=== PATIENT | male | born 1960 | race Caucasian/White ===

== ENCOUNTER 2019-11-21 20:29 | Inpatient (IN) | payer OTHER ==
[~2019-11-21] VITALS: Ht 170.2 cm; Wt 122.3 kg
--- NOTE | 2019-11-21 20:59 | NUR ---
PT BROUGHT IN BY SON DUE TO RIGHT FACIAL DROOP THAT BEGAN AT 1630. +RIGHT FACIAL DROOP. +WEAKNESS ON RIGHT ARM AND LEG. DENIES NUMBNESS AND TINGLING. PT HAS NO SLURRED SPEECH AT THIS TIME HOWEVER SON STATES HE HAD IT EARLIER. PT IS A/O X4. RESP E/U. DENIES PAIN/DISCOMFORT. TELE NEURO ON STANDBY.
--- NOTE | 2019-11-21 21:18 | NUR ---
PT SEEN BY TELE NEURO.
[2019-11-21 21:28] LABS: BASOPHIL % 0.6 % (0-2); PLATELET COUNT 290 x10^3mcL (130-400)
[2019-11-21 21:36] LABS: CALCIUM 8.9 mg/dL (8.5-10.1); CARBON DIOXIDE 27.1 mmol/L (21-32); CHLORIDE SERUM 101 mmol/L (98-107); CREATININE SERUM 1.1 mg/dL (0.7-1.3); GFR1 > 60 mL/min; GLUCOSE SERUM 147 mg/dL (74-106); POTASSIUM SERUM 3.6 mmol/L (3.5-5.1); SODIUM SERUM 136 mmol/L (136-145)
[2019-11-21] MEDS ORDERED: LOSARTAN POTASS25 M1 PO (21:40)
[2019-11-21 21:41] LABS: ALBUMIN 3.5 g/dL (3.4-5.0); ALKALINE PHOSPHATASE 99 U/L (46-116); ALT/SGPT 54 U/L (16-63); AST/SGOT 31 U/L (15-37); BILIRUBIN TOTAL 0.5 mg/dL (0.20-1.00); TOTAL PROTEIN, SERUM 7.5 g/dL (6.4-8.2)
[2019-11-21] MEDS ORDERED: GOOD SENSE OMEP20 MG PO (21:41)
--- NOTE | 2019-11-21 21:57 | NUR ---
ATTEMPTED TO URINATE HOWEVER COULD NOT.
--- NOTE | 2019-11-21 22:13 | NUR ---
PT RESTING IN BED WITH NO C/O PAIN/DISCOMFORT. PT TALKING C SON AT BEDSIDE. +RIGHT FACIAL DROOP. DENIES NUMBNESS/TINGLING. SPEAKING CLEARLY AND S SLURRED SPEECH. ALL NEEDS MET AT THIS TIME.
--- NOTE | 2019-11-21 22:40 | NUR ---
GAVE REPORT TO [facility] AT 2112
--- NOTE | 2019-11-21 22:43 | NUR ---
PER DR IZAGUIRRE, NO NEED TO WAIT FOR PT'S CT ANGIO RESULTS TO COME BACK, PT OKAY TO GO UP TO TELE.
--- NOTE | 2019-11-21 23:00 | NUR ---
PT WAS RECEIVED BY PRIMARY NURSE LUZ FROM ED VIA [place] AT 2255H. PT CAME IN DUE TO SLURRED SPEECH SINCE 4:30PM NOTICED BY THE SON. AAOX4. DENIES HEADACHE/DIZZINESS. ABLE TO FOLLOW COMMANDS. SPEECH IS CLEAR. NO FACIAL DROOP. NO ARM DRIFT/LEG DRIFT NOTED. DENIES NUMBNESS/TINGLING SENSATION.NO SOB NOTED, LUNG SOUNDS CTA, O2 SAT=97%, RA. DENIES CHEST PAIN/PRESSURE, SR ON THE MONITOR. DENIES ABDOMINAL DISCOMFORT. HAD BM TODAY, FORMED. VOIDS. IV SITE PATENT AND INTACT. SIDE RAILS UPX2. CALL LIGHT ON REACH. SON AT BEDSIDE. PRIMARY NURSE LUZ AT BEDSIDE FOR CONTINUITY OF CARE
[2019-11-21 23:16] VITALS: BP 159/82
[2019-11-21 23:21] VITALS: Ht 170.2 cm; Wt 122.3 kg
[2019-11-22 00:01] LABS: microscopic required? NO
[2019-11-22 00:13] LABS: urine erythrocyte NEGATIVE (NEGATIVE)
--- NOTE | 2019-11-22 01:37 | NUR ---
SR ON THE MONITOR, NO COMPLAINTS NOTED AT THIS TIME. RESTING QUIETLY IN BED, WITH EYES CLOSED, APPEARS ASLEEP, EASILY AROUSABLE. RESP. EVEN AND UNLABORED. NO ACUTE DISTRESS NOTED. WILL CONTINUE TO MONITOR.
--- NOTE | 2019-11-22 03:46 | NUR ---
FAMILY HERE TO TERMITE EXTERMINATOR HELPER PT. FAMILY SIGNED AMA FORM. DR TANA BECKETT MADE AWARE.HL AND TELE. MONITOR DISCONTINUED. PT LEFT THE FLOOR, ACCOMPANIED BY AND A FAMILY MEMBER.
== END 2019-11-22 03:45 | disposition left against medical advice (07) | DRG 66 ==
LOC: ED 20:29 → DU 22:23
PROVIDERS: Emergency Medicine; ADMIT Internal Medicine Pulmonary Disease
DX: I63.9 Cerebral infarction, unspecified (principal); I10 Essential (primary) hypertension; Z53.21 Procedure and treatment not carried out due to patient leaving prior to being seen by health care provider; R47.81 Slurred speech; Z79.899 Other long term (current) drug therapy
CPT/HCPCS: 82962; G0378; Q0092; Q9967